=== PATIENT | male | born 1995 | race African-American/Black ===

== ENCOUNTER 2021-10-13 19:04 | Emergency (ER) | payer SELFPAY ==
[~2021-10-13] VITALS: Ht 170.2 cm; Wt 100.0 kg
[2021-10-13] MEDS ORDERED: KETOROLAC 30MG/ML VIAL IV STA (19:43)
[2021-10-13] MEDS ORDERED: ONDANSETRON HCL 4MG/2ML INJ IV STA (19:43)
[2021-10-13] MEDS ORDERED: SODIUM CHLORIDE 0.9% 1,000 ML IV ONE (19:45)
[2021-10-13 20:11] LABS: CHLORIDE 102 mEq/L (98-107)
[2021-10-13 20:14] VITALS: BP 128/82
[2021-10-13 20:14] LABS: BASOPHILS % 0.5 % (0.0-2.0); HEMATOCRIT. 49.8 % (42.0-52.0); HEMOGLOBIN. 16.7 g/dL (14.0-18.0); MEAN CORPUSCULAR HEMOGLOBIN 28.2 pg (28.0-32.0); MEAN CORPUSCULAR VOLUME 83.9 fL (80.0-94.0); MEAN PLATELET VOLUME 8.5 fl (7.4-10.4); MONOCYTES % 6.4 % (2.0-8.0); NEUTROPHILS % 79.1 % (40.0-76.0); PLATELET 338 x1000/uL (130-400); RED BLOOD CELL COUNT 5.94 mill/uL (4.7-6.1); RED CELL DISTRIBUTION WIDTH 14.4 % (11.6-14.6)
== END 2021-10-13 21:50 | disposition left against medical advice (07) ==
LOC: ER 19:04
DX: R10.84 Generalized abdominal pain (principal); Z53.29 Procedure and treatment not carried out because of patient's decision for other reasons; K21.9 Gastro-esophageal reflux disease without esophagitis; F12.10 Cannabis abuse, uncomplicated
CPT/HCPCS: 36415; 74176; 80053; 83690; 85025; 93005; 96361; 96374; 96375; 99285; J1885; J2405; J7030